=== PATIENT | female | born 1965 | race Caucasian/White ===

== ENCOUNTER 2017-09-04 14:33 | Outpatient (CLI) | payer OTHER | END 2017-09-04 14:34 | disposition home or self-care (01) | LOC: BICMAMMO 14:33 | PROVIDERS: ATTEND Family Medicine | DX: Z12.31 Encounter for screening mammogram for malignant neoplasm of breast (principal) | CPT/HCPCS: 77063; 77067 ==

== ENCOUNTER → 2018-04-29 | Day surgery (SDC) | payer OTHER ==
[2018-04-24 14:52] VITALS: BMI 28.7
[~2018-04-29] MED LIST: Lidocaine 2% PF 100 mg/5 ml Syringe ONE; PROPOFOL 40 ML ONE
== END ==
LOC: CCL 10:04
PROVIDERS: ATTEND Internal Medicine Cardiovascular Disease
DX: R07.9 Chest pain, unspecified (principal); R00.2 Palpitations; I10 Essential (primary) hypertension; E78.5 Hyperlipidemia, unspecified; Z86.73 Personal history of transient ischemic attack (TIA), and cerebral infarction without residual deficits; Z82.49 Family history of ischemic heart disease and other diseases of the circulatory system; Z79.82 Long term (current) use of aspirin; Z79.899 Other long term (current) drug therapy; Z88.8 Allergy status to other drugs, medicaments and biological substances
CPT/HCPCS: 93312; J2001; J2704

== ENCOUNTER 2018-09-30 14:37 | Outpatient (CLI) | payer OTHER | END 2018-09-30 14:38 | disposition home or self-care (01) | LOC: BICMAMMO 14:37 | PROVIDERS: ATTEND Family Medicine | DX: Z12.31 Encounter for screening mammogram for malignant neoplasm of breast (principal) | CPT/HCPCS: 77063; 77067 ==

== ENCOUNTER 2018-10-31 12:54 | Outpatient (CLI) | payer OTHER ==
--- NOTE | 2018-10-31 16:23 | CT ---
CT LUMBAR SPINE: History: Lumbar spine pain. Radiculopathy. Technique: Axial images were obtained with coronal and sagittal reconstructions. FINDINGS/IMPRESSION: There is grade II anterolisthesis of L5 on S1. 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 There is 8 mm of anterolisthesis of L5 on S1. Some bilater al SI joint degenerative change is seen. Compression grade II anterolisthesis of L5 on S1 with bilateral pars intraarticularis defects. POS: [facility]
== END 2018-10-31 12:55 | disposition home or self-care (01) ==
LOC: BICCT 12:54
PROVIDERS: ATTEND Surgery
DX: M54.16 Radiculopathy, lumbar region (principal); M43.16 Spondylolisthesis, lumbar region; M43.17 Spondylolisthesis, lumbosacral region; M53.3 Sacrococcygeal disorders, not elsewhere classified
CPT/HCPCS: 72131

== ENCOUNTER 2022-05-31 07:41 | Outpatient (CLI) | payer BC | END 2022-05-31 07:42 | disposition home or self-care (01) | LOC: BICULT 07:41 | PROVIDERS: ATTEND Family Medicine | DX: R79.89 Other specified abnormal findings of blood chemistry (principal); R93.421 Abnormal radiologic findings on diagnostic imaging of right kidney | CPT/HCPCS: 76705; 77063; 77067 ==